=== PATIENT | male | born 1960 | race Two or more races ===

== ENCOUNTER 2019-04-20 09:54 | Outpatient (CLI) | payer MEDICAID ==
[~2019-04-20] VITALS: Ht 175.3 cm; Wt 83.9 kg
[2019-04-20 14:00] VITALS: BP 133/91
--- NOTE | 2019-04-20 15:45 | Consultation ---
DATE OF CONSULTATION: 04/20/2019 GASTROENTEROLOGY CONSULTATION: CONSULTING PHYSICIAN: Issa Daniel M.D. REASON FOR REFERRAL: The patient was referred for followup colonoscopy given history of colon cancer, also chronic GERD. HISTORY OF PRESENT ILLNESS: This is a 58-year-old male with history of colon cancer diagnosed in 2013. Last colonoscopy about 2 years ago. The patient was told that he needs another colonoscopy followup. Also, the patient was seen by ENT, was told that he had severe reflux and needs an endoscopy. PAST MEDICAL HISTORY: 1. Hypertension. 2. Colon cancer. 3. GERD. PAST SURGICAL HISTORY: Partial colectomy. MEDICATIONS: Omeprazole and hypertension medication. FAMILY HISTORY: No family history of GI malignancies. SOCIAL HISTORY: The patient drinks and smokes socially. No IV drug abuse. ALLERGIES: No known drug allergy. REVIEW OF SYSTEMS: A 10-point review of systems was performed and pertinent positives in HPI. PHYSICAL EXAMINATION: VITAL SIGNS: Temperature 97, blood pressure is 133/91, pulse is 67, respirations 20. HEENT: Normocephalic and atraumatic. Sclerae anicteric. NECK: Supple. No evidence of obvious lymphadenopathy. CARDIOVASCULAR: Regular rate and rhythm. Plus S1 and S2. No obvious murmur. LUNGS: Clear to auscultation bilaterally. ABDOMEN: Positive bowel sounds. Soft and nontender. No rebound. No guarding. No peritoneal sign. EXTREMITIES: No cyanosis, no clubbing, no edema. ASSESSMENT AND PLAN: This is a 58-year-old male with history of colon cancer and chronic GERD. Plan for endoscopy and colonoscopy. The patient was given instruction for colonoscopy and the prep. We will plan when authorization is obtained. Issa Daniel M.D. DR: NASEEM JOB#: [id number] CC:
[2019-04-21] MEDS ORDERED: BP MED (07:55)
[2019-04-21] MEDS ORDERED: OMEPRAZOLE40 M1 ORAL (07:55)
== END 2019-04-20 11:45 | disposition home or self-care (01) ==
LOC: PAN 09:54
DX: K21.9 Gastro-esophageal reflux disease without esophagitis (principal); Z85.038 Personal history of other malignant neoplasm of large intestine; I10 Essential (primary) hypertension; Z79.899 Other long term (current) drug therapy
CPT/HCPCS: 99202

== ENCOUNTER 2019-06-14 14:01 | Outpatient (CLI) | payer MEDICAID ==
[~2019-06-14 14:01] MED LIST: BP MED; OMEPRAZOLE40 M1 ORAL
--- NOTE | 2019-06-14 15:46 | General Progress Note ---
Assessment/Plan Problem List: (1) Barretts esophagus ICD Codes: K22.70 - Villalta's esophagus without dysplasia SNOMED: 628439823 (2) Gastritis ICD Codes: K29.70 - Gastritis, unspecified, without bleeding SNOMED: 0585527 (3) Hemorrhoids ICD Codes: K64.9 - Unspecified hemorrhoids SNOMED: 75841144 Assessment/Plan: procedure and pathology reviewed with the patient recommend ppi daily repeat EGd in 2 years repeat colonoscopy in 5 years Subjective ROS Limited/Unobtainable: Yes Allergies: Coded Allergies: No Known Allergies (Unverified , 04/21/19) Objective General Appearance: alert EENT: normal ENT inspection Neck: supple Cardiovascular: normal rate Respiratory/Chest: lungs clear Abdomen: normal bowel sounds, non tender, soft Extremities: non-tender Issa Daniel MD Jun 14, 2019 15:46
[2019-06-15 08:05] VITALS: BP 133/87
== END 2019-06-14 16:01 | disposition home or self-care (01) ==
LOC: PAN 14:01
DX: K22.70 Barrett's esophagus without dysplasia (principal); K29.70 Gastritis, unspecified, without bleeding; K64.9 Unspecified hemorrhoids
CPT/HCPCS: 99212